=== PATIENT | female | born 2000 | race Caucasian/White ===

== ENCOUNTER 2023-10-19 10:49 | Day surgery (SDC) | payer BC ==
[2023-10-15 16:40] LABS: Albumin/Globulin Ratio 1.1 (1.1-1.8); Bilirubin Total 0.3 mg/dL (0.2-1.0); Globulin 3.6 g/dL (2.3-3.5); Protein, Total 7.6 g/dL (6.4-8.2)
--- NOTE | 2023-10-16 16:55 | EKG ---
Test Date: 2023-10-15 Test Time: 16:01:18 Hydrometeorologist: LATRELL MEASUREMENT RESULTS: Intervals: Rate: 60 VA: 156 QRSD: 96 QT: 406 QTc: 406 [place]: P: 45 VA: 156 QRS: 89 T: 74 INTERPRETIVE STATEMENTS: Normal sinus rhythm Normal ECG No previous ECG available for comparison Electronically Signed On 10-16-23 16:52:47 CDT by Keaotn Schroeder
[2023-10-19] MEDS ORDERED: CEFOXITIN SODIUM 2 GM/VIAL ONE (11:19)
[2023-10-19] MEDS ORDERED: Ringers Lactate 1,000 ML IV ONE (11:19)
[2023-10-19] MEDS ORDERED: LIDOCAINE HCL/EPINEPHRINE 20 ML MDV ONE (12:23)
[2023-10-19] MEDS ORDERED: LIDOCAINE 1% MPF 5 ML VIAL ONE (15:37)
[2023-10-19] MEDS ORDERED: KETOROLAC 30 MG/ML INJ ONE (15:37)
[2023-10-19] MEDS ORDERED: ONDANSETRON 4 MG/2 ML VIAL ONE ×2 (15:37→17:35)
[2023-10-19] MEDS ORDERED: GLYCOPYRROLATE 0.2 MG/ML SYR ONE ×2 (15:37→17:00)
[2023-10-19] MEDS ORDERED: FENTANYL CITR 100 MCG/2 ML ONE ×2 (15:38→16:42)
[2023-10-19] MEDS ORDERED: MIDAZOLAM HCL 2 MG/2 ML INJ ONE (15:38)
[2023-10-19] MEDS ORDERED: ROCURONIUM 50 MG/5 ML VIAL IV ONE (15:38)
[2023-10-19] MEDS ORDERED: propofoL 200 MG/20 ML VIAL IV ONE (15:38)
[2023-10-19] MEDS ORDERED: EPHEDRINE SULF 50 MG/ML VIAL ONE (16:33)
[2023-10-19] MEDS ORDERED: NEOSTIGMINE 1 MG/ML -10 ML VIAL ONE (17:00)
--- NOTE | 2023-10-19 17:15 | P.OP ---
Preoperative diagnosis: Cholecystitis with Cholelithiasis Postoperative diagnosis: Cholecystitis with Cholelithiasis Primary procedure: Laparoscopic Cholecystectomy with ICG Anesthesia: GETA + Local Estimated blood loss: <5cc Specimen: Gallbladder Findings: Cholecystitis with Cholelithiasis Complications: None Transferred to: Recovery Room Condition: Good
[2023-10-19] MEDS ORDERED: HYDROMORPHONE HCL 1 MG/ML INJ ONE ×2 (17:38→17:44)
[2023-10-19 17:49] VITALS: BP 128/55
[2023-10-19 18:00] VITALS: O2SAT 99
[2023-10-19 18:09] VITALS: TEMP 97
[2023-10-19] MEDS: HYDROCODONE/APAP 10/325 TAB ONE (18:14)
--- NOTE | 2023-10-19 20:54 | OP ---
Date of Procedure: 10/19/2023 Surgeon: Michel Hall MD, Preoperative Diagnosis: Cholecystitis with cholelithiasis. Postoperative Diagnosis: Cholecystitis with cholelithiasis. Procedures Performed: Laparoscopic cholecystectomy, indocyanine green cholangiography. Anesthesia: General endotracheal plus local, 1% lidocaine with epinephrine. Estimated Blood Loss: Less than 5 cc. Specimen: Gallbladder. Findings: Cholelithiasis with cholecystitis. Complications: None. Disposition: The patient was transferred to recovery room in good condition. Procedure In Detail: After informed consent was obtained, patient was brought to the operating room, prepped and draped in the usual sterile fashion after adequate anesthesia was achieved. I anestheti zed the area of the supraumbilical position down to subcutaneous tissue. A 5 mm 0-degree optical tro car was introduced in the abdomen without incident or complication. Insufflation was obtained to 15 mmHg at this time. No injury to vital structures upon entering the abdomen. 2 additional trocars we re placed, 1 in the epigastrium, 1 in the right upper quadrant. Both of these were similarly anesthe tized and sharply incised. A 5 mm trocar was placed under direct visualization without incident or c omplication. The umbilical trocar was then upsized to a 12 mm under direct visualization. The patie nt was positioned head up, right-side up position. Ratcheted graspers were used to grasp the patient 's gallbladder. It was placed towards the patient's right shoulder. Dissection continued down the H artmann pouch of the gallbladder removing adhesions off the anterior surface of the gallbladder from the omentum predominantly and near the duodenum and stomach, which had adhesions between these. Thes e were taken down using blunt dissection predominantly with minimal electrocautery. After this was p erformed, I skeletonized 2 structures identified as both cystic duct and cystic artery. The critical view of safety was obtained at this point with 2 structures identified as a cystic duct and cystic a rtery. I then performed indocyanine green cholangiography and confirmed the anatomic landmarks as de scribed. Double titanium clips doubly on the proximal side and singly on the distal side of both the cystic duct and cystic artery. These structures were then ligated between Endo Radha. The gallbla dder was removed with the hepatic fossa without incident or complication, placed in an EndoCatch bag, removed through the umbilical trocar site. Upon examination, the hepatic fossa was inspected at thi s point. No additional hemostatic was required. The area was copiously irrigated and suctioned out completely dry. Indocyanine green cholangiography showed no leakage about the end of the procedure. The patient was positioned back in neutral position. Remaining air-fluid was suctioned out. The 12 trocar site was then closed using a Cristian-Urmila suture passer with an 0 Vicryl in interrupted fa shion, good approximation of tissue. The abdomen was desufflated under direct vision without inciden t or complications. Remaining trocars removed. All skin edges were then copiously irrigated, closed with a 4-0 Monocryl in a running fashion. Dermabond was placed over top. The patient tolerated the procedure without incident or complications, transferred back in good condition. All counts were co rrect at the end of the case. DEE DEE/DIOGO Voice ID: [id number] Report ID: [id number]
== END 2023-10-19 18:36 | disposition home or self-care (01) ==
LOC: OR 10:49
PROVIDERS: ATTEND Surgery
PROC: BF50200 Other Imaging of Bile Ducts using Fluorescing Agent, Indocyanine Green Dye, Intraoperative (ICD-10-PCS; 2023-10-19)
PROC: 0FT44ZZ Resection of Gallbladder, Percutaneous Endoscopic Approach (ICD-10-PCS; principal; 2023-10-19 13:15)
DX: K80.10 Calculus of gallbladder with chronic cholecystitis without obstruction (principal)
CPT/HCPCS: 93005; 36415; 81025; 80053; 47563; J2704; J2710; J2001; J2250; J3010 ×2; J1170 ×2; J0694; J2405 ×2; J7120; 88304